=== PATIENT | female | born 1940 | race African-American/Black ===

== ENCOUNTER 2016-09-03 20:34 | Inpatient (IN) | payer OTHER ==
[~2016-09-03] VITALS: Ht 167.6 cm; Wt 92.5 kg
[~2016-09-03 20:34] MED LIST: ACETAMINOPHEN-1 EAC1 PO; ALLOPURINOL300 MG PO; AMLODIPINE BESY10 MG PO; AMLODIPINE BESYL5 MG PO; CLONIDINE HCL0.1 MG PO; IMDUR60 MG PO; LO-DOSE ASPIRIN81 M2 PO; METOPROLOL SUCC50 MG PO; NITROSTAT0.4 MG SL; NORVASC5 MG PO; PANTOPRAZOLE SO40 MG PO; RANEXA500 MG PO; SIMVASTATIN20 MG PO; SPIRONOLACTONE50 MG PO; TYLENOL REGULA325 MG PO
[2016-09-03 21:19] LABS: MCH 30.4 PG (29.0-34.0); MCHC 31.5 G/DL (30.0-36.0); MCV 96.4 FL (83-99); MEAN PLAT.VOLUME 11.3 uM^3 (9.5-12.4); PLATELET COUNT 177 K/uL (156-360); RBC DIS.WIDTH-CV 13.8 % (11.8-14.6); RBC DIS.WIDTH-SD 49.1 % (39-53); RED BLOOD COUNT 4.15 M/uL (3.80-5.20); WHITE BLOOD COUNT 5.4 K/uL (4.1-10.2)
[2016-09-03 21:36] LABS: CHLORIDE 104 mEq/L (99-109); POTASSIUM 4.5 mEq/L (3.7-5.4); SODIUM 136 mEq/L (136-147)
[2016-09-03 21:38] LABS: GLUCOSE 83 mg/dL (70-99)
[2016-09-03 21:39] LABS: ANION GAP 13 MEQ/L (2-14)
[2016-09-03 21:42] LABS: GFR ESTIMATE (CALCULATED) 37 mL/min/
[2016-09-03 21:43] LABS: UREA NITROGEN (BUN) 15 mg/dL (9-23)
[2016-09-03 22:54] LABS: TROP-I INTERPRETATION NEGATIVE; TROPONIN-I < 0.01 ng/mL (0.0-0.30)
[2016-09-03 23:29] LABS: TOTAL BILIRUBIN 0.4 mg/dL (0.0-1.0)
[2016-09-03 23:31] LABS: ALKALINE PHOSPHATASE 99 IU/L (3-129)
[2016-09-03 23:33] LABS: DIRECT BILIRUBIN 0.1 mg/dL (0.0-0.3)
[2016-09-03 23:34] LABS: LIPASE 21 U/L (1.0-51.0)
[2016-09-03] MEDS ORDERED: PROTONIX40 MG PO (23:59)
[2016-09-04] MEDS ORDERED: VENTOLIN HFA18 GM IH
[2016-09-04 00:12] LABS: INTER. NORMALIZED RATIO 1.1; PROTHROMBIN TIME 10.7 (9.2-11.2)
[2016-09-04 00:18] LABS: PTT 32.4 (25-32)
[2016-09-04 03:27] VITALS: BP 173/74
[2016-09-04 04:10] LABS: D-DIMER ELISA 0.66 mg/L FEU (< 0.57)
[2016-09-04 07:28] LABS: TROP-I INTERPRETATION NEGATIVE; TROPONIN-I 0.01 ng/mL (0.0-0.30)
[2016-09-04 08:04] VITALS: BP 162/70
[2016-09-04 11:57] VITALS: BP 145/66
[2016-09-04 13:28] LABS: TROP-I INTERPRETATION NEGATIVE; TROPONIN-I 0.02 ng/mL (0.0-0.30)
[2016-09-04 16:19] VITALS: BP 163/68
[2016-09-04 20:26] VITALS: BP 194/87
[2016-09-05 00:19] VITALS: BP 126/59
[2016-09-05 05:31] LABS: HEMATOCRIT 36.8 % (36.0-46.0); MCH 30.1 PG (29.0-34.0); MCHC 31.5 G/DL (30.0-36.0); MCV 95.6 FL (83-99); MEAN PLAT.VOLUME 11.4 uM^3 (9.5-12.4); PLATELET COUNT 179 K/uL (156-360); RBC DIS.WIDTH-CV 13.5 % (11.8-14.6); RBC DIS.WIDTH-SD 47.6 % (39-53); RED BLOOD COUNT 3.85 M/uL (3.80-5.20); WHITE BLOOD COUNT 5.3 K/uL (4.1-10.2)
[2016-09-05 05:58] LABS: ANION GAP 9 MEQ/L (2-14); CHLORIDE 103 MEQ/L (99-109); GFR ESTIMATE (CALCULATED) 40 mL/min/; GLUCOSE 90 mg/dL (70-99); POTASSIUM 4.8 MEQ/L (3.7-5.4); SAMPLE HEMOLYSIS CHECK 0; SAMPLE ICTERIC CHECK 0; SAMPLE LIPEMIA CHECK 0; SODIUM 139 MEQ/L (136-147); UREA NITROGEN (BUN) 15 mg/dL (9-23)
[2016-09-05 08:40] VITALS: BP 157/77
[2016-09-05 09:14] LABS: ADD MIUA? YES; BILIRUBIN NEGATIVE; BLOOD NEGATIVE; COLOR YELLOW ((YELLOW)); GLUCOSE (STRIP) NEGATIVE; KETONES NEGATIVE; LEUKOCYTES SMALL; NITRITE NEGATIVE; PROTEIN (STRIP) NEGATIVE; SPECIFIC GRAVITY 1.009 (1.000-1.030); UROBILINOGEN 0.2 MG/DL (0.2-1.0)
[2016-09-05 09:44] LABS: BACTERIA NONE SEEN /HPF; EPITHELIAL CELLS RARE /HPF; MUCUS NONE SEEN /LPF
[2016-09-05 12:09] VITALS: BP 125/65
[2016-09-05 19:44] VITALS: BP 130/65
[2016-09-05 23:27] VITALS: BP 106/63
[2016-09-06 03:36] VITALS: BP 116/67
[2016-09-06 08:01] VITALS: BP 144/68
[2016-09-06 11:54] VITALS: BP 150/71
[2016-09-06 19:29] VITALS: BP 120/64
[2016-09-06 23:34] VITALS: BP 136/62
[2016-09-07 03:57] VITALS: BP 129/67
[2016-09-07 08:31] VITALS: BP 150/67
[2016-09-07 15:00] VITALS: BP 112/55
[2016-09-07 21:01] VITALS: BP 122/60
[2016-09-07 23:58] VITALS: BP 134/63
[2016-09-08] MEDS ORDERED: DIVALPROEX SOD500 MG PO (08:06)
[2016-09-08] MEDS ORDERED: PREDNISONE10 MG PO (08:09)
[2016-09-08 08:32] VITALS: BP 171/74
[2016-09-08 09:23] VITALS: BP 160/72
== END 2016-09-08 12:15 | disposition home or self-care (01) | DRG 103 ==
LOC: EME 20:34 → EDOF 09-04 00:47 → 5WEST 09-04 03:06 → 5SOUTH 09-04 13:40
PROVIDERS: Hospitalist; Nurse Practitioner Adult Health; Physician Assistant
DX: R51 Headache (principal); I25.10 Atherosclerotic heart disease of native coronary artery without angina pectoris; I50.9 Heart failure, unspecified; I13.0 Hypertensive heart and chronic kidney disease with heart failure and stage 1 through stage 4 chronic kidney disease, or unspecified chronic kidney disease; N18.3 Chronic kidney disease, stage 3 (moderate); J45.909 Unspecified asthma, uncomplicated; R42 Dizziness and giddiness; M10.9 Gout, unspecified; E78.00 Pure hypercholesterolemia, unspecified; K21.9 Gastro-esophageal reflux disease without esophagitis; R11.2 Nausea with vomiting, unspecified; R20.0 Anesthesia of skin; I25.2 Old myocardial infarction; Z95.5 Presence of coronary angioplasty implant and graft; Z86.73 Personal history of transient ischemic attack (TIA), and cerebral infarction without residual deficits; Z95.1 Presence of aortocoronary bypass graft
CPT/HCPCS: 70450; 71020; 78582; 80048; 80076; 81003; 83690; 83880; 84484; 85027; 85379; 85610; 85651; 85730; 93005; 93970; 99281; 99284; A9540; A9567; J0360; J1200; J1644; J2270; J2405; J2765; J3010; J7030; J7512

== ENCOUNTER → 2017-05-04 | Outpatient (CLI) | payer MEDICARE ==
[~2017-05-04] MED LIST changes: +DIVALPROEX SOD500 MG PO; +PREDNISONE10 MG PO; +PROTONIX40 MG PO; +VENTOLIN HFA18 GM IH
== END | disposition home or self-care (01) ==
LOC: CDC 11:24
DX: Z01.810 Encounter for preprocedural cardiovascular examination (principal); I65.29 Occlusion and stenosis of unspecified carotid artery; I44.0 Atrioventricular block, first degree; I51.7 Cardiomegaly; R94.31 Abnormal electrocardiogram [ECG] [EKG]
CPT/HCPCS: 93000

== ENCOUNTER 2017-09-01 15:26 | Observation (INO) | payer OTHER ==
[~2017-09-01] VITALS: Ht 167.6 cm; Wt 88.6 kg
[2017-09-01 16:30] LABS: HEMATOCRIT 39.8 % (36.0-46.0); HEMOGLOBIN 13.2 G/DL (11.9-15.5); MCH 31.5 PG (29.0-34.0); MCHC 33.2 G/DL (30.0-36.0); PLATELET COUNT 185 K/uL (156-360); RBC DIS.WIDTH-CV 14.6 % (11.8-14.6); RBC DIS.WIDTH-SD 51.3 % (39-53); RED BLOOD COUNT 4.19 M/uL (3.80-5.20); WHITE BLOOD COUNT 6.6 K/uL (4.1-10.2)
[2017-09-01 16:43] LABS: CHLORIDE 100 mEq/L (99-109); POTASSIUM 4.2 mEq/L (3.7-5.4); SODIUM 140 mEq/L (136-147)
[2017-09-01 16:44] LABS: GLUCOSE 96 mg/dL (70-99)
[2017-09-01 16:48] LABS: CREATININE 2.2 mg/dL (0.6-1.3); GFR ESTIMATE (CALCULATED) 28 mL/min/
[2017-09-01 16:49] LABS: UREA NITROGEN (BUN) 28 mg/dL (9-23)
[2017-09-01 16:54] LABS: TROP-I INTERPRETATION NEGATIVE; TROPONIN-I < 0.01 ng/mL (0.0-0.30)
[2017-09-01] MEDS ORDERED: DEPAKOTE500 MG PO (18:29)
[2017-09-01] MEDS ORDERED: TRAMADOL HCL50 MG PO (18:32)
[2017-09-01] MEDS ORDERED: LODINE500 MG PO (18:34)
[2017-09-01] MEDS ORDERED: ACETAMINOPHEN-1 EAC1 PO (18:35)
[2017-09-01] MEDS ORDERED: CLOPIDOGREL75 MG PO (18:35)
[2017-09-01 20:04] LABS: ALBUMIN 4.1 g/dL (3.2-4.8)
[2017-09-01 20:07] LABS: TOTAL PROTEIN 8.2 g/dL (6.4-8.3)
[2017-09-01 20:08] LABS: TOTAL BILIRUBIN 0.4 mg/dL (0.0-1.0)
[2017-09-01 20:09] LABS: ALKALINE PHOSPHATASE 121 IU/L (3-129)
[2017-09-01 20:12] LABS: AST (GOT) 18 IU/L (2-34); DIRECT BILIRUBIN 0.2 mg/dL (0.0-0.3)
[2017-09-01 20:13] LABS: ALT (GPT) 7 IU/L (3-49); LIPASE 27 U/L (1.0-51.0)
[2017-09-01 21:55] LABS: HDL CHOLESTEROL 43 MG/DL (Desirable>=50); LDL CHOLESTEROL 73 mg/dL (Desirable<100); NON-HDL CHOLESTEROL 85 mg/dL (Desirable<160); TOTAL CHOLESTEROL 128 mg/dL (Desirable<200); TRIGLYCERIDES 58 MG/DL (Normal: <150)
[2017-09-01 22:17] VITALS: BP 181/87
[2017-09-01 22:55] LABS: TROP-I INTERPRETATION NEGATIVE; TROPONIN-I 0.02 ng/mL (0.0-0.30)
[2017-09-02 03:25] VITALS: BP 148/69
[2017-09-02 05:08] LABS: HEMOGLOBIN 11.7 G/DL (11.9-15.5); MCH 30.4 PG (29.0-34.0); MCHC 31.6 G/DL (30.0-36.0); MCV 96.1 FL (83-99); PLATELET COUNT 178 K/uL (156-360); RBC DIS.WIDTH-CV 14.7 % (11.8-14.6); RBC DIS.WIDTH-SD 51.8 % (39-53); RED BLOOD COUNT 3.85 M/uL (3.80-5.20)
[2017-09-02 05:28] LABS: TROP-I INTERPRETATION NEGATIVE; TROPONIN-I 0.02 ng/mL (0.0-0.30)
[2017-09-02 05:34] LABS: CHLORIDE 100 MEQ/L (99-109); CREATININE 1.8 MG/DL (0.6-1.3); GFR ESTIMATE (CALCULATED) 35 mL/min/; GLUCOSE 90 mg/dL (70-99); POTASSIUM 3.7 MEQ/L (3.7-5.4); SODIUM 137 MEQ/L (136-147); UREA NITROGEN (BUN) 25 mg/dL (9-23)
[2017-09-02 07:37] VITALS: BP 140/68
[2017-09-02 09:01] LABS: HEMOGLOBIN A1c (GLYCOHEMOGLOB) 5.4 % (Below 5.7)
[2017-09-02 11:36] VITALS: BP 106/52
[2017-09-02 15:51] VITALS: BP 107/60
[2017-09-02 19:15] VITALS: BP 116/57
[2017-09-03 00:10] VITALS: BP 109/60
[2017-09-03 04:01] VITALS: BP 121/59
[2017-09-03 07:45] VITALS: BP 144/65
[2017-09-03 12:19] VITALS: BP 107/53
[2017-09-03 15:25] VITALS: BP 104/56
[2017-09-03 19:15] VITALS: BP 111/53
[2017-09-04] VITALS (7 sets, daily range): BP systolic 110–140; BP diastolic 54–71
[2017-09-04] MEDS ORDERED: PREDNISONE10 MG PO (11:15)
[2017-09-05 04:03] VITALS: BP 130/66
[2017-09-05 07:00] VITALS: BP 153/68
[2017-09-05 09:06] LABS: APPEARANCE CLOUDY ((CLEAR)); BILIRUBIN NEGATIVE; BLOOD SMALL; COLOR YELLOW ((YELLOW)); GLUCOSE (STRIP) NEGATIVE; KETONES NEGATIVE; LEUKOCYTES LARGE; NITRITE NEGATIVE; PROTEIN (STRIP) NEGATIVE; SPECIFIC GRAVITY 1.006 (1.000-1.030); UROBILINOGEN 0.2 MG/DL (0.2-1.0)
[2017-09-05 09:37] LABS: BACTERIA RARE /HPF; EPITHELIAL CELLS 2+ /HPF; MUCUS TRACE /LPF; RED BLOOD CELLS 20-30 /HPF (0-5); UCUL ADDED? YES; WHITE BLOOD CELLS TNTC /HPF (0-5)
[2017-09-05] MEDS ORDERED: CEFDINIR300 MG PO (11:52)
== END 2017-09-05 14:11 | disposition home or self-care (01) ==
LOC: RME 15:26 → EME 15:26 → EDOF 19:13 → 4SOUTH 19:13 → ENRESERV 19:18 → 4SOUTH 22:03
PROVIDERS: Hospitalist; Nurse Practitioner Family
PROC: 03BT3ZX Excision of Left Temporal Artery, Percutaneous Approach, Diagnostic (ICD-10-PCS; principal; 2017-09-05)
DX: R07.9 Chest pain, unspecified (principal); R20.0 Anesthesia of skin; R51 Headache; R70.0 Elevated erythrocyte sedimentation rate; I65.21 Occlusion and stenosis of right carotid artery; I13.0 Hypertensive heart and chronic kidney disease with heart failure and stage 1 through stage 4 chronic kidney disease, or unspecified chronic kidney disease; I50.22 Chronic systolic (congestive) heart failure; N18.3 Chronic kidney disease, stage 3 (moderate); I25.10 Atherosclerotic heart disease of native coronary artery without angina pectoris; R91.1 Solitary pulmonary nodule; Z95.1 Presence of aortocoronary bypass graft; Z95.5 Presence of coronary angioplasty implant and graft; I47.1 Supraventricular tachycardia; Z86.73 Personal history of transient ischemic attack (TIA), and cerebral infarction without residual deficits; J45.909 Unspecified asthma, uncomplicated; I42.9 Cardiomyopathy, unspecified; Z88.6 Allergy status to analgesic agent; R60.9 Edema, unspecified
CPT/HCPCS: 70450; 70544; 70549; 70551; 71046; 71250; 80048; 80061; 80076; 81003; 83036; 83690; 84484; 85027; 85379; 85651; 86140; 87086; 93005; 93970; 99281; 99285; G0378; J0690; J1170; J1644; J2370; J3010; J7512; S0020